=== PATIENT | female | born 1935 | race Caucasian/White ===

== ENCOUNTER 2017-05-09 08:19 | Inpatient (IN) ==
[2017-05-09 08:57] LABS: BASOPHILS % (AUTO) 0.2 % (0.0-3.0); EOSINOPHILS # (AUTO) 0.1 K/ul (0.0-0.7); EOSINOPHILS % (AUTO) 1.1 % (0.0-7.0); HEMATOCRIT 38.2 % (37.0-47.0); HEMOGLOBIN 13.2 g/dl (12.0-16.0); IMMATURE GRANULOCYTE % (AUTO) 0.6 % (0.0-5.0); LYMPHOCYTES # (AUTO) 1.5 K/uL (0.60-3.4); LYMPHOCYTES % (AUTO) 16.7 (10.0-50.0); MEAN CORPUSCULAR HEMOGLOBIN 31.4 pg (27.0-31.0); MEAN CORPUSCULAR HGB CONC 34.6 (31.8-35.4); MEAN CORPUSCULAR VOLUME 90.7 fl (81.0-99.0); MONOCYTES # (AUTO) 0.7 K/uL (0.4-2.0); MONOCYTES % (AUTO) 7.9 (0-10); NEUTROPHILS # (AUTO) 6.5 K/ul (2.0-6.9); NEUTROPHILS % (AUTO) 73.5; PLATELET COUNT 151 10^3/uL (140-440); RED BLOOD COUNT 4.21 10^6/ul (4.20-5.40); WHITE BLOOD COUNT 8.86 K/ul (4.6-10.2)
[2017-05-09 09:18] LABS: ALBUMIN 3.4 g/dL (3.4-5.0); ALBUMIN/GLOBULIN RATIO 1.03; ANION GAP 13.7; BILIRUBIN,TOTAL 0.99 mg/dL (0.00-1.20); BUN/CREATININE RATIO 18.29; CALCIUM 9.9 mg/dL (8.2-10.2); CREATININE 0.82 mg/dL (0.60-1.30); POTASSIUM 3.7 mmol/L (3.5-5.10); TOTAL PROTEIN 6.7 g/dL (5.8-8.1)
--- NOTE | 2017-05-09 09:34 | CT ---
EXAM: CT Abdomen without contrast. CT Pelvis without contrast. HISTORY: Generalized abdominal pain. Bloody stool. Previous small bowel obstruction. COMPARISON: 09/29/2011. TECHNIQUE: Multiple axial images of the abdomen and pelvis were obtained without intravenous contras t. Images were reformatted in the coronal plane. FINDINGS: Please note that evaluation of the abdominal and pelvic structures is limited due to lack of intravenous contrast. Lung bases are clear. Degenerative changes present in the spine. Calcified stones in the gallbladder. Hepatic cysts are stable, largest in the lateral left lobe. Th e pancreas, spleen, adrenal glands demonstrate normal contour. Exophytic complicated renal cyst note d. No calcified renal stones or hydronephrosis identified. There is moderate wall thickening of the sigmoid colon with adjacent inflammation. This occurs in th e setting of diverticulosis. There is no evidence for bowel obstruction. There is evidence for perf oration or abscess. Appendix not seen. Calcified uterine fibroids noted. Urinary bladder is unrema rkable. Atherosclerotic calcifications are present. IMPRESSION: Moderate acute sigmoid diverticulitis. Correlate with colonoscopy after resolution of the acute sympt oms, if not recently performed
--- NOTE | 2017-05-09 09:55 | ED.PDOC ---
General ED Provider: Dr. MELODIE BRAND Chief Complaint: Abdominal Pain Stated Complaint: LOWER ABDOMINAL PAIN Time Seen by Physician: 08:20 (IN THE PAST HAS HAD BOWEL OBSTRUCTION WITH SAME TYPE OF PAIN) Mode of Arrival: Walk-In Information Source: Patient Exam Limitations: No limitations (ON PRESENTATION HAS MODEARTE ABDOMINAL PAIN NEGATIVE REBOUND) Nursing and Triage Documentation Reviewed and Agree: Yes GI Complaint Exam - Abdominal Pain Complaint/Exam Onset: Gradual Duration: 3 DAYS Symptoms Are: Still present Timing: Intermittent Initial Severity: Moderate Current Severity: Moderate Location of Pain: RLQ, LLQ Character: Reports: Dull, Aching Aggravating: Reports: None Alleviating: Reports: None Associated Signs and Symptoms: Reports: Cough, Constipation Related History: Reports: Similar episode AAA Risk Factors: Reports: None Cardiac Risk Factors: Reports: None Ectopic Risk Factors: Reports: None Ovarian Torsion Risk Factors: Reports: None Surgical Obstruction Risk Factors: Reports: None Related Surgical History: Reports: None Patient Rh Status: Unknown Abdominal Findings: Present: None Review of Systems - Review Of Systems Constitutional: Reports: No symptoms Eyes: Reports: No symptoms Ears, Nose, Mouth, Throat: Reports: No symptoms Respiratory: Reports: No symptoms Cardiac: Reports: No symptoms GI: Reports: Abdominal pain : Reports: No symptoms Musculoskeletal: Reports: No symptoms Skin: Reports: No symptoms Neurological: Reports: No symptoms Endocrine: Reports: No symptoms Hematologic/Lymphatic: Reports: No symptoms All Other Systems: Reviewed and Negative Past Medical History - Past Medical History Previously Healthy: Yes Endocrine: Reports: None Cardiovascular: Reports: None Respiratory: Reports: None Hematological: Reports: None Gastrointestinal: Reports: None Genitourinary: Reports: None Neuro/Psych: Reports: None Musculoskeletal: Reports: None Cancer: Reports: None Last Menstrual Period: NA - Surgical History General Surgical History: Reports: None - Family History Family History: Reports: None - Social History Smoking Status: Never smoker Hx Substance Use: No Alcohol Screening: None Physical Exam - Physical Exam Appearance: Well-appearing, No pain distress, Well-nourished Eyes: CINDY, EOMI, Conjunctiva clear ENT: Ears normal, Nose normal, Oropharynx normal Respiratory: Airway patent, Breath sounds clear, Breath sounds equal, Respirations nonlabored Cardiovascular: RRR, Pulses normal, No rub, No murmur GI/: Tender Musculoskeletal: Normal strength, ROM intact, No edema, No calf tenderness Skin: Warm, Dry, Normal color Neurological: Sensation intact, Motor intact, Reflexes intact, Cranial nerves intact, Alert, Oriented Psychiatric: Affect appropriate, Mood appropriate Interpretation - Radiology Interpretation Radiology Interpretation By: Radiologist Radiology Results: Positive (DIVERTICULITIS) Physician Notification - Case Discussed Physician Notified: DANIELLE Time of Notification: 09:55 (ADMITT) Admit To: Inpatient Critical Care Note - Critical Care Note Total Time (mins): 0 Course - Course Hematology/Chemistry: 05/09/17 08:50 05/09/17 08:50 Orders, Labs, Meds: Lab Review 05/09/17 05/09/17 08:50 08:50 WBC 8.86 RBC 4.21 Hgb 13.2 Hct 38.2 MCV 90.7 MCH 31.4 H MCHC 34.6 RDW Coeff of Maci 12.5 Plt Count 151 Immature Gran % (Auto) 0.6 Neut % (Auto) 73.5 Lymph % (Auto) 16.7 Fisher % (Auto) 7.9 Eos % (Auto) 1.1 Baso % (Auto) 0.2 Immature Gran # (Auto) 0.1 Neut # 6.5 Lymph # 1.5 Fisher # 0.7 Eos # 0.1 Baso # 0.0 Sodium 141 Potassium 3.7 Chloride 104 Carbon Dioxide 27 Anion Gap 13.7 BUN 15 Creatinine 0.82 Estimated GFR (MDRD) 67.00 BUN/Creatinine Ratio 18.29 Glucose 108 Calcium 9.9 Total Bilirubin 0.99 AST 19 ALT 26 Alkaline Phosphatase 107 Total Protein 6.7 Albumin 3.4 Globulin 3.3 Albumin/Globulin Ratio 1.03 Amylase 37 Lipase 11 Orders Category Date Time Status AMYLASE Stat LAB 05/09/17 08:50 Completed BLOOD CULTURE Stat LAB 05/09/17 09:51 Ordered CBC W/ AUTO DIFF Stat LAB 05/09/17 08:50 Completed COMPREHENSIVE METABOLIC PANEL Stat LAB 05/09/17 08:50 Completed LIPASE Stat LAB 05/09/17 08:[address] ABDOMEN/PELVIS WO CONTRAST Stat RADS 05/09/17 08:41 Completed Vital Signs: Temp Pulse Resp BP Pulse Ox 05/09/17 08:20 97.7 F 79 16 138/81 96 Departure - Departure Time of Disposition: 09:55 Disposition: ADMITTED INPATIENT Discharge Problem: Abdominal pain Diverticulitis Qualifiers: Diverticulitis site: unspecified part of intestinal tract Diverticulitis bleeding: without bleeding Instructions: Abdominal Pain (ED) Condition: Good Pt referred to PMD for follow-up: Yes Additional Instructions: Please call your Family Physician as soon as possible to schedule a follow-up appointment. Allergies/Adverse Reactions: Allergies No Known Allergies Allergy (Verified 05/09/17 08:20) Home Medications: Ambulatory Orders 1 [No Reported Medications] 12/04/14 Disposition Discussed With: Patient
[2017-05-09] MEDS ORDERED: ROCEPHIN 1 GM in SODIUM CHLORIDE 50 ML IV STA (09:59)
[2017-05-09] MEDS ORDERED: ROCEPHIN ONE (10:08)
[2017-05-09] MEDS: SODIUM CHLORIDE 1,000 ML IV SCH ×2 (11:30→22:46)
[2017-05-09 11:41] VITALS: BMI 26.2
[2017-05-09] MEDS: FLAGYL 500 MG/100 ML 500 MG in PREMIX 100 ML NS 1 BAG IV SCH ×3 (13:18→23:19)
[2017-05-10] MEDS: FLAGYL 500 MG/100 ML 500 MG in PREMIX 100 ML NS 1 BAG IV SCH ×3 (05:07→17:47)
[2017-05-10 05:43] LABS: BASOPHILS % (AUTO) 0.3 % (0.0-3.0); EOSINOPHILS # (AUTO) 0.2 K/ul (0.0-0.7); EOSINOPHILS % (AUTO) 2.5 % (0.0-7.0); HEMATOCRIT 33.8 % (37.0-47.0); HEMOGLOBIN 11.6 g/dl (12.0-16.0); IMMATURE GRANULOCYTE % (AUTO) 0.3 % (0.0-5.0); LYMPHOCYTES # (AUTO) 1.3 K/uL (0.60-3.4); LYMPHOCYTES % (AUTO) 21.5 (10.0-50.0); MEAN CORPUSCULAR HEMOGLOBIN 31.5 pg (27.0-31.0); MEAN CORPUSCULAR HGB CONC 34.3 (31.8-35.4); MEAN CORPUSCULAR VOLUME 91.8 fl (81.0-99.0); MONOCYTES # (AUTO) 0.6 K/uL (0.4-2.0); MONOCYTES % (AUTO) 9.2 (0-10); NEUTROPHILS % (AUTO) 66.2; PLATELET COUNT 138 10^3/uL (140-440); RED BLOOD COUNT 3.68 10^6/ul (4.20-5.40); WHITE BLOOD COUNT 6.01 K/ul (4.6-10.2)
[2017-05-10 05:55] LABS: ALBUMIN 2.8 g/dL (3.4-5.0); ALBUMIN/GLOBULIN RATIO 1.08; ANION GAP 9.8; BILIRUBIN,TOTAL 0.34 mg/dL (0.00-1.20); BUN/CREATININE RATIO 18.3; CALCIUM 8.4 mg/dL (8.2-10.2); CREATININE 0.71 mg/dL (0.60-1.30); POTASSIUM 3.8 mmol/L (3.5-5.10); TOTAL PROTEIN 5.4 g/dL (5.8-8.1)
[2017-05-10] MEDS: SODIUM CHLORIDE 1,000 ML IV SCH (12:40)
[2017-05-11] MEDS: FLAGYL 500 MG/100 ML 500 MG in PREMIX 100 ML NS 1 BAG IV SCH ×2 (00:06→05:06)
[2017-05-11] MEDS: SODIUM CHLORIDE 1,000 ML IV SCH (03:11)
[2017-05-11 04:58] LABS: BASOPHILS % (AUTO) 0.3 % (0.0-3.0); EOSINOPHILS # (AUTO) 0.2 K/ul (0.0-0.7); EOSINOPHILS % (AUTO) 3.1 % (0.0-7.0); HEMATOCRIT 32.4 % (37.0-47.0); IMMATURE GRANULOCYTE % (AUTO) 0.5 % (0.0-5.0); LYMPHOCYTES # (AUTO) 1.3 K/uL (0.60-3.4); LYMPHOCYTES % (AUTO) 20.4 (10.0-50.0); MEAN CORPUSCULAR HEMOGLOBIN 31.1 pg (27.0-31.0); MEAN CORPUSCULAR VOLUME 91.5 fl (81.0-99.0); MONOCYTES # (AUTO) 0.6 K/uL (0.4-2.0); MONOCYTES % (AUTO) 9.1 (0-10); NEUTROPHILS # (AUTO) 4.1 K/ul (2.0-6.9); NEUTROPHILS % (AUTO) 66.6; PLATELET COUNT 149 10^3/uL (140-440); RED BLOOD COUNT 3.54 10^6/ul (4.20-5.40); WHITE BLOOD COUNT 6.18 K/ul (4.6-10.2)
[2017-05-11 05:17] LABS: ALBUMIN 2.8 g/dL (3.4-5.0); ALBUMIN/GLOBULIN RATIO 1.22; ANION GAP 10.8; BILIRUBIN,TOTAL 0.4 mg/dL (0.00-1.20); BUN/CREATININE RATIO 11.26; CALCIUM 8.7 mg/dL (8.2-10.2); CREATININE 0.71 mg/dL (0.60-1.30); POTASSIUM 3.8 mmol/L (3.5-5.10); TOTAL PROTEIN 5.1 g/dL (5.8-8.1)
[2017-05-11 05:25] VITALS: BP 159/85; TEMP 97.1
--- NOTE | 2017-05-18 11:07 | HP ---
DATE OF SERVICE: 05/09/17 Seen and examined the patient in the emergency room with Dr. Oakes CHIEF COMPLAINT: Abdominal pain HISTORY OF PRESENT ILLNESS: 82 year old healthy female who came to the emergency room been having the left lower side belly pain four times on and off, cramping type and dull type. She did have some blood in the stools, has history of constipation, cyst in the colon and had a colonoscopy in the past, worried about that she came to the emergency room and was seen by Dr. Oakes in the emergency room. WBC was normal , vital signs were normal and CT of abdomen and pelvis done which showed moderate acute sigmoid diverticulitis. Correlate with colonoscopy after resolution of the cute symptoms. If not recently performed. At that time in review of complicated diverticulitis course the patient in the past was hospital for the IV antibiotics and bowel rest. REVIEW OF SYSTEMS: CONSTITUTIONAL: No fever, no chills. HEENT: Normal. ENDOCRINE: No weight gain; no weight loss. CVS: No chest pain. No PND, no orthopnea. No shortness of breath. No PND, no orthopnea. RESPIRATORY: No cough, no congestion. No hemoptysis. GI: No nausea, no vomiting. No abdominal pain. No melena. : No hematuria. No polyuria. MUSCULOSKELETAL: No joint swelling. PSYCHIATRIC: Not anxious. No depression. No suicidal thoughts. No homicidal thoughts. SKIN: Intact, no open lesions. PAST MEDICAL HISTORY: Hypertension Dyslipidemia but does not take any medication s Osteoarthritis PAST SURGICAL HISTORY: Colostomy with reversal after repair Left shoulder replaced Tonsillectomy PERSONAL HISTORY: The patient does not smoke or drink. Family history significant for the diabetes. MEDICATIONS: None ALLERGIES: None PHYSICAL EXAMINATION: V/S: blood pressure 138/81, respiratory rate 16, heart rate 79, temperature 97.7 with saturation 96%. HEENT: Atraumatic, normocephalic. No scleral icterus. Mucosa dry. NECK: Supple. No JVD, no bruit. No lymphadenopathy. No thyromegaly. HEART: S1, S2 normal. No murmur. No cyanosis or clubbing. No ascites. LUNGS: Clear to auscultation. No rales or rhonchi. ABDOMEN: Soft, Left lower quadrant tenderness and rigidity is mildly present. Bowel sounds are sluggish. No CVA tenderness. No guarding. EXTREMITIES: No cyanosis, clubbing or pedal edema. MUSCULOSKELETAL: Normal joints, no swelling. NEUROLOGIC: The patient is SKIN: Intact; no open lesions. LYMPHATIC: No lymph nodes palpable. LABS: WBC 8.86, hgb 13.2, hct 38.2, plt count 151, sodium 141, potassium 3.7, chloride 104, Bicarb 27, BUN 15, creatinine 0.82. ASSESSMENT: 1. Acute left sided sigmoid diverticulitis 2. History of dyslipidemia, not on any medications 3. Osteoarthritis 4. History of colostomy in the past PLAN: 1. Admit patient to regular floor 2. Clear liquid diet only and present time 3. IV fluids 4. Rocephin 1 gram daily 5. Flagyl 500mg Q 8 hours 6. Daily I&O's TIME SPENT: MORE THAN 70 minutes MTDD
--- NOTE | 2017-05-18 11:20 | PN ---
DATE OF SERVICE: 05/10/17 SUBJECTIVE: The patient was admitted with the acute diverticulitis. She was able to keep down the clear liquid diet. The patient did not have any bowel movement for 4 days and wanted some help. Otherwise no other problems. REVIEW OF SYSTEMS: CONSTITUTIONAL: No fever, no chills. HEENT: Normal. ENDOCRINE: No weight gain, no weight loss. CVS: No angina symptoms. No CHF symptoms. No palpitations. No atypical chest pain for CAD. No shortness of breath. No PND, no orthopnea. RESPIRATORY: No cough, no hemoptysis. GI: No nausea, no vomiting. No abdominal pain. : No hematuria. No polyuria. MUSCULOSKELETAL:. No joint swelling. PSYCHIATRIC: Not anxious. No depression. No suicidal thoughts. No homicidal thoughts. SKIN: Intact. No rash. PHYSICAL EXAMINATION: V/S: Blood pressure 132/75, respiratory rate 16, heart rate 80 and temperature 97.3 with saturation 95%. HEENT: Normocephalic, atraumatic. Mucosa dry. Pallor positive. No icterus. NECK: Supple. No JVD, no carotid bruit. No lymphadenopathy. LUNGS: Clear to auscultation. No rales or rhonchi. HEART: S1, S2 normal. No S3. No murmur, gallop or regurgitation. ABDOMEN: Soft, discomfort and tenderness in the left lower quadrant. Bowel sounds sluggish. No rigidity. No rebound or guarding. No CVA tenderness. EXTREMITIES: No clubbing, cyanosis or pedal edema. MUSCULOSKELETAL: No joint swelling. NEUROLOGIC: Awake, alert, oriented times three. No focal deficit. LYMPHATIC: No lymph nodes palpable. SKIN: Intact. LABS: Sodium 142, potassium 3.8, chloride 110, bicarb 26, BUN 13, creatinine 0.71, WBC 6.10, hgb 11.6, hct 33.8, plt count 138. ASSESSMENT: 1. Acute left sided sigmoid diverticulitis 2. Anemia 3. History of rectal bleed, one episode before coming to the hospital 4. History of arthritis 5. Dyslipidemia 6. History of diverticulosis with complicated surgery in the past. PLAN: 1. Continue soft diet 2. IV antibiotics Rocephin and Flagyl 3. Out of bed to chair activity as tolerated 4. No DVT prophylaxis as patient is active. TIME SPENT: More than 35 minutes MTDD
--- NOTE | 2017-05-18 11:45 | DS ---
DATE OF SERVICE: 05/11/17 FINAL DIAGNOSIS: 1. Left sided sigmoid diverticulitis 2. Anemia 3. History of lower GI bleed 4. Osteoarthritis 5. Left shoulder replacement 6. History of complex surgery for the diverticulitis in the past DISCHARGE INSTRUCTIONS: Discharge the patient home. Followup with the [facility] within one week. MEDICATIONS AT DISCHARGE/NEW PRESCRIPTIONS: Ciprofloxacin 250mg twice a day for five days DIET INSTRUCTIONS: Soft diet until seen in the office. ACTIVITY: As much as tolerated SMOKING: Never smoker DISEASE SPECIFIC EDUCATION: Please avoid the seeds and nuts Discussed about the diverticulitis disease Risk of abscess. HOSPITAL COURSE: Karen Weathers 82 year old very healthy lady and does not take any medications at home came to the emergency room with the left sided abdominal pain, mucusy bloody bowel movement, one episode. As patient had complicated history with the diverticulosis the patient got worried and came to the emergency room. The WBC was normal. CT abdomen and pelvis does show the acute noncomplicated diverticulitis of the left sigmoid colon. At that time the patient was admitted to the hospital and started on the IV Rocephin and Flagyl and IV fluids. The patient was put on a clear liquid diet. The patient had a problem with the constipation with the medication she did resolve the constipation and had a good bowel movement and did not have any problem. The patient is up and about walking. By the third day she was more active wanting to go home. Still on the clear liquid diet the patient says that she will continue the same at home. At that time the patient being discharged home on Cipro 250mg twice a day for 5 days. As patient is very active advised to take the Probiotics and followup at the [facility]. TIME SPENT: MORE THAN 55 MINUTES MTDD
== END 2017-05-11 09:46 | disposition home or self-care (01) | DRG 392 ==
LOC: ED 08:19 → SCU 10:07
PROVIDERS: ADMIT Emergency Medicine; ATTEND Emergency Medicine
DX: K57.32 Diverticulitis of large intestine without perforation or abscess without bleeding (principal); K59.03 Drug induced constipation; D64.9 Anemia, unspecified; Z87.19 Personal history of other diseases of the digestive system; M19.90 Unspecified osteoarthritis, unspecified site; E78.5 Hyperlipidemia, unspecified; R05 Cough; Z98.890 Other specified postprocedural states
CPT/HCPCS: 36415; 80053; 82150; 83690; 85025; 87040; 96365; 99284